=== PATIENT | male | born 1965 | race Caucasian/White ===

== ENCOUNTER 2018-02-08 13:39 | Emergency (ER) | payer OTHER ==
[~2018-02-08] VITALS: Ht 193 cm; Wt 112.9 kg
[2018-02-08] MEDS ORDERED: BACLOFEN10 MG PO (17:32)
[2018-02-08] MEDS ORDERED: MOTRIN800 MG PO (17:32)
[2018-02-08] MEDS ORDERED: LIDODERM 5% P1 PATCH TD (17:32)
[2018-02-08] MEDS ORDERED: VOLTAREN 1% GE100 GM TP (17:32)
[2018-02-08 18:02] VITALS: BP 124/74
== END 2018-02-08 18:03 | disposition home or self-care (01) ==
LOC: EME 13:39
DX: S16.1XXA Strain of muscle, fascia and tendon at neck level, initial encounter (principal); M50.30 Other cervical disc degeneration, unspecified cervical region; R20.2 Paresthesia of skin; R51 Headache; V49.50XA Passenger injured in collision with unspecified motor vehicles in traffic accident, initial encounter; Y92.410 Unspecified street and highway as the place of occurrence of the external cause; Z79.82 Long term (current) use of aspirin
CPT/HCPCS: 70450; 72040; 72125; 99281; 99283; J1885